=== PATIENT | male | born 1995 | race Caucasian/White ===

== ENCOUNTER 2017-03-28 16:50 | Emergency (ER) | payer MEDICAID ==
[~2017-03-28] VITALS: Ht 175.3 cm; Wt 64.0 kg
[2017-03-28 16:51] VITALS: BP 116/59; PULSE 94; RESP 18; TEMP 98.4; O2SAT 99
[2017-03-28] MEDS ORDERED: IBUPROFEN 800 MG TAB PO ONE (17:15)
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
[2017-03-28] MEDS ORDERED: IBUP1TAB7 PO (17:35)
== END 2017-03-28 17:49 | disposition home or self-care (01) ==
LOC: NEPK 16:50
DX: S00.33XA Contusion of nose, initial encounter (principal); W50.0XXA Accidental hit or strike by another person, initial encounter; Y93.67 Activity, basketball
CPT/HCPCS: 70160; 99283